=== PATIENT | female | born 1950 | race Caucasian/White ===

== ENCOUNTER 2017-01-04 18:15 | Emergency (ER) | payer OTHER ==
[~2017-01-04] VITALS: Ht 160 cm; Wt 80.7 kg
[2017-01-04 18:23] VITALS: BP 203/111; PULSE 95; RESP 16; TEMP 97.3; O2SAT 99
--- NOTE | 2017-01-04 18:23 | NUR ---
Patient to ER bed 4 to gown for evaluation. Side rails up. Assumed care.
--- NOTE | 2017-01-04 18:30 | NUR ---
ER at bedside examining patient.
--- NOTE | 2017-01-04 18:32 | NUR ---
Pt bib EMS c/o R Flank pain s/p cough at work.Pt has slow steady ambulation. Pt hypertensive upon arrival. Pt placed on monitor.
[2017-01-04] MEDS ORDERED: KETOROLAC TROMETHAMINE 60 MG/2 ML VIAL IM ONE (18:45)
--- NOTE | 2017-01-04 18:45 | NUR ---
Pt ambulated to rad dept with rad staff.
--- NOTE | 2017-01-04 19:05 | NUR ---
Pt is sitting in bed due to lower back pain. No distress noted. Pt still is hypertensive. AAOx4. Pt rates pain 4/10 if she doesn't move. Will continue to monitor via school lunch monitor.
[2017-01-04] MEDS ORDERED: LABETALOL 100 MG/ 20ML VIAL IVP ONE ×2 (20:00→20:45)
[2017-01-04 20:23] LABS: HEMATOCRIT 45.5 % (36-48); HEMOGLOBIN 14.9 g/dL (12.0-16.0); MEAN CORPUSCULAR HEMOGLOBIN 31 pg (27-31); MEAN CORPUSCULAR HGB CONC 33 % (32-36); MEAN CORPUSCULAR VOLUME 94 fL (79.0-98.0); PLATELET COUNT (AUTO) 311 K/uL (130-430); RED BLOOD CELL COUNT(AUTO) 4.86 MIL/uL (4.2-6.2); RED CELL DISTRIBUTION WIDTH 12.9 % (9.0-15.0); WHITE BLOOD COUNT (AUTO) 10.1 K/uL (4.8-10.8)
[2017-01-04 20:24] LABS: BASOPHILS # (AUTO) 0.1 K/uL (0.0-0.2); BASOPHILS % (AUTO) 0.6 % (0.0-2.0); EOSINOPHILS # (AUTO) 0.1 K/uL (0.0-0.4); EOSINOPHILS % (AUTO) 0.8 % (0.0-4.0); LYMPHOCYTES # (AUTO) 2.6 K/uL (1.0-5.5); LYMPHOCYTES % (AUTO) 25.4 % (20.5-51.5); MONOCYTES # (AUTO) 0.7 K/uL (0.0-1.0); MONOCYTES % (AUTO) 7.3 % (1.7-9.3); NEUTROPHILS # (AUTO) 6.6 K/uL (1.8-7.7); NEUTROPHILS % (AUTO) 65.9 % (40.0-70.0)
[2017-01-04 20:34] LABS: INR 0.9 (0.8-1.2); PROTHROMBIN TIME 9.9 SECS (9.5-12.5)
[2017-01-04 20:36] LABS: ALBUMIN 4.3 g/dL (3.4-4.8); CALCIUM 9.2 mg/dL (8.4-11.0); CREATININE 1.17 mg/dL (0.55-1.30); POTASSIUM 3.7 mmol/L (3.5-5.1); TOTAL BILIRUBIN 0.4 mg/dL (0.0-1.0); TOTAL PROTEIN, SERUM 8.3 g/dL (6.4-8.3)
[2017-01-04] MEDS ORDERED: ACETAMINOPHEN 325 MG TABLET PO ONE (21:00)
[2017-01-04] MEDS ORDERED: hydrALAZINE HCL 20 MG/ML VIAL IVP ONE (21:30)
--- NOTE | 2017-01-04 21:30 | NUR ---
Pt is resting comfortably in bed. BP is still high. Pain level 3/10. Will continue to monitor via engine monitor. No distress noted.
[2017-01-04 22:27] VITALS: BP 168/92; PULSE 72; RESP 16; TEMP 97.3; O2SAT 98
--- NOTE | 2017-01-04 22:27 | NUR ---
Patient given written and verbal discharge instructions and verbalizes understanding. ER MD discussed with patient the results and treatment provided. Patient in stable condition. ID arm band removed. IV catheter removed intact and dressing applied, no active bleeding. Rx of lisinopril given. Patient educated on pain management and to follow up with PMD. Pain Scale 2/10. Opportunity for questions provided and answered.
== END 2017-01-04 22:27 | disposition home or self-care (01) ==
LOC: SED 18:15
DX: M54.5 Low back pain (principal); I10 Essential (primary) hypertension; R05 Cough; J45.909 Unspecified asthma, uncomplicated; Z88.5 Allergy status to narcotic agent
CPT/HCPCS: 36415; 71020; 71100; 80053; 80061; 83880; 85025; 85610; 85730; 93005; 96372; 96374; 96375; 99285; J0360; J1885; J3490